=== PATIENT | male | born 1985 | race Caucasian/White ===

== ENCOUNTER 2018-07-13 14:04 | Emergency (ER) | payer BC ==
[~2018-07-13] VITALS: Ht 170.2 cm; Wt 87.1 kg
--- NOTE | 2018-07-13 14:08 | NUR ---
COUGHED OUT 1.5 INCH X .5 INCH WHAT APPEARS TO BE A CARTILAGE
[2018-07-13] MEDS ORDERED: MAG HYDROX/AL HYDROX/SIMETH 30 ML UDC ONE (14:19)
[2018-07-13] MEDS ORDERED: LIDOCAINE VISCOUS 2% UD 15 ML UDC ONE (14:19)
[2018-07-13] MEDS ORDERED: LIDOCAINE VISCOUS 2% UD 15 ML UDC MM ONE (14:30)
[2018-07-13] MEDS ORDERED: MAG HYDROX/AL HYDROX/SIMETH 30 ML UDC PO ONE (14:30)
[2018-07-13 14:51] VITALS: BP 125/80
--- NOTE | 2018-07-13 14:52 | NUR ---
Patient discharged to home in stable condition. Written and verbal after care instructions given. Patient verbalizes understanding of instruction.
== END 2018-07-13 14:51 | disposition home or self-care (01) ==
LOC: ER 14:07
DX: T17.228A Food in pharynx causing other injury, initial encounter (principal); Z88.0 Allergy status to penicillin; X58.XXXA Exposure to other specified factors, initial encounter; Y93.89 Activity, other specified; Y92.89 Other specified places as the place of occurrence of the external cause; Y99.8 Other external cause status
CPT/HCPCS: 99283; A4606; Z7610